=== PATIENT | female | born 1970 | race Caucasian/White ===

== ENCOUNTER 2017-07-24 00:54 | Emergency (ER) | payer BC ==
[2017-07-24] MEDS ORDERED: KETOROLAC TROMETHAMINE INJ/PF 30 MG/1 ML SDV IV ONE (01:19)
--- NOTE | 2017-07-24 01:20 | ER Document Report ---
ED General - General Chief Complaint: Flank Pain Stated Complaint: ABDOMINAL PAIN Time Seen by Provider: 07/24/17 01:10 Notes: Patient is a 38-year-old female presents with complaint of pain rating from back around to the right pelvic region. Says it is a burning type pain around the flank. Says worse when she sits up or moves. No dysuria. No pain or burning with urination. No history of kidney stones. No history of abdominal surgeries. She said she was recently started on a estrogen type injection a few weeks ago. She said that she did have some vaginal bleeding a week ago but currently does not have any vaginal bleeding. No diarrhea. No vomiting. No fevers. Denies any recent trauma or injuries. No other complaints at this time. Pain just started in the last 12-24 hours. TRAVEL OUTSIDE OF THE [place] IN LAST 30 DAYS: No - Related Data Allergies/Adverse Reactions: No Known Allergies Allergy (Unverified 07/24/17 00:57) Past Medical History - Social History Smoking Status: Never Smoker Frequency of alcohol use: Social Drug Abuse: None Family History: Reviewed & Not Pertinent Review of Systems - Review of Systems Notes: My Normal Review Basic REVIEW OF SYSTEMS: CONSTITUTIONAL : Denies fever, chills, or sweats. Denies recent illness. CARDIOVASCULAR: Denies chest pain. RESPIRATORY: Denies cough, cold, or chest congestion. Denies shortness of breath, difficulty breathing, or wheezing. GASTROINTESTINAL: Lower quadrant abdominal pain. Denies nausea, vomiting, or diarrhea. GENITOURINARY: Denies difficulty urinating, painful urination, burning, frequency, or blood in urine. FEMALE GENITOURINARY: Denies vaginal bleeding, abnormal or irregular periods. MUSCULOSKELETAL: Right back and flank pain SKIN: Denies rash or skin lesions. NEUROLOGICAL: Denies altered mental status or loss of consciousness. Denies headache. Denies weakness or paralysis or loss of use of either side. Denies problems with gait or speech. Denies sensory or motor loss. ALL OTHER SYSTEMS REVIEWED AND NEGATIVE. Physical Exam - Vital signs Vitals: Temp Pulse Resp BP Pulse Ox 97.8 F 73 18 133/77 H 100 07/24/17 01:00 07/24/17 01:00 07/24/17 01:00 07/24/17 01:00 07/24/17 01:00 - Notes Notes: General Appearance: Well nourished, alert, cooperative, no acute distress, mild obvious discomfort. Vitals: reviewed, See vital signs table. Eyes: PERRL, EOMI, Conjuctiva clear Mouth: No decreasd moisture Lungs: No wheezing, No rales, No rhonci, No accessory muscle use, good air exchange bilaterally. Heart: Normal rate, Regular rythm, No murmur, no rub Abdomen: Normal BS, soft, No rigidity, no reproducible pain palpation of the abdomen or flank., No guarding, no rebound, no abdominal masses, no organomegaly Back: Mild pain to palpation of the right lower back. No rash or herpetic type lesions on the skin. Extremities: strength 5/5 in all extremities, good pulses in all extremities, no swelling or tenderness in the extremities, no edema. Skin: warm, dry, appropriate color, no rash Neuro: speech clear, oriented x 3, normal affect, responds appropriately to questions. Course - Vital Signs Vital signs: Temp Pulse Resp BP Pulse Ox 97.8 F 73 18 133/77 H 100 07/24/17 01:00 07/24/17 01:00 07/24/17 01:00 07/24/17 01:00 07/24/17 01:00 - Laboratory Result Diagrams: 07/24/17 01:17 07/24/17 01:17 Laboratory results interpreted by me: 07/24/17 07/24/17 01:17 01:24 Total Bilirubin 0.1 L Urine Blood SMALL H Discharge - Discharge Clinical Impression: Flank pain Back pain Qualifiers: Back pain location: low back pain Chronicity: acute Back pain laterality: right Sciatica presence: without sciatica Qualified Code(s): M54.5 - Low back pain Condition: Good Disposition: HOME, SELF-CARE Additional Instructions: I suspect your pain is related to a pinched nerve or could be pain that sometimes occurs before shingles. I have prescribed Acyclovir. Please start this medication if you develop a shingles rash over your back or flank. Do not fill or take the medication if you do not develop a rash. We will start you on prednisone. Please take over the counter Tylenol and Iburpofen. Please follow up with your doctor on Wednesday. At that time you can discuss with your doctor whether or not to start Lyrica and what further workup is needed. Please return to the ER if you have worsneing of your pain, fevers, loss of bowel control, weakness or numbness into your legs, vomiting or feel unwell. Prescriptions: Acyclovir [Acyclovir 400 mg Tablet] 800 mg PO 5XD #70 tablet Prednisone 10 mg PO ASDIR #42 tablet
[2017-07-24 01:28] LABS: ABSOLUTE EOSINOPHILS # (AUTO) 0.3 10^3/uL (0.0-0.6); ABSOLUTE LYMPHOCYTES (AUTO) 3.8 10^3/uL (0.5-4.7); ABSOLUTE MONOCYTES (AUTO) 0.7 10^3/uL (0.1-1.4); ABSOLUTE NEUT (AUTO) 3.9 10^3/uL (1.7-8.2); BASOPHILS % (AUTO) 0.5 % (0-2); EOSINOPHILS % (AUTO) 3.4 % (0-6); HEMATOCRIT 40.3 % (36.0-47.0); HEMOGLOBIN 13.6 g/dL (12.0-15.5); LYMPHOCYTES % (AUTO) 43.7 % (13-45); MEAN CORPUSCULAR HEMOGLOBIN 28.5 pg (27.0-33.4); MEAN CORPUSCULAR HGB CONC 33.7 g/dL (32.0-36.0); MEAN CORPUSCULAR VOLUME 85 fl (80-97); MONOCYTES % (AUTO) 7.8 % (3-13); PLATELET COUNT 250 10^3/uL (150-450); RED BLOOD COUNT 4.77 10^6/uL (3.72-5.28); RED CELL DISTRIBUTION WIDTH 13.1 % (11.5-14.0); SEGMENTED NEUTROPHILS % (AUTO) 44.6 % (42-78); TOTAL CELLS COUNTED % (AUTO) 100 %; WHITE BLOOD COUNT 8.8 10^3/uL (4.0-10.5)
[2017-07-24 01:42] LABS: ALANINE AMINOTRANSFERASE 23 U/L (9-52); ALBUMIN 4.6 g/dL (3.5-5.0); ALKALINE PHOSPHATASE 55 U/L (38-126); ANION GAP 18 (5-19); ASPARTATE AMINO TRANSFERASE 18 U/L (14-36); BILIRUBIN,DIRECT 0.1 mg/dL (0.0-0.4); BILIRUBIN,TOTAL 0.1 mg/dL (0.2-1.3); BLOOD UREA NITROGEN 13 mg/dL (7-20); CALCIUM 10.1 mg/dL (8.4-10.2); CARBON DIOXIDE 26 mmol/L (22-30); CHLORIDE 101 mmol/L (98-107); GLUCOSE 101 mg/dL (75-110); POTASSIUM 3.8 mmol/L (3.6-5.0); SODIUM 144.9 mmol/L (137-145); TOTAL PROTEIN 7.5 g/dL (6.3-8.2)
[2017-07-24 01:51] LABS: APPEARANCE,URINE SLIGHTLY-CLOUDY; BILIRUBIN,URINE NEGATIVE (NEGATIVE); COLOR,URINE YELLOW; GLUCOSE, URINE NEGATIVE (NEGATIVE); KETONES,URINE NEGATIVE (NEGATIVE); LEUKOCYTE ESTERASE,URINE NEGATIVE (NEGATIVE); NITRITE,URINE NEGATIVE (NEGATIVE); PROTEIN,URINE NEGATIVE (NEGATIVE); URINE SPECIFIC GRAVITY 1.002; UROBILINOGEN,URINE NEGATIVE mg/dL (<2.0)
[2017-07-24] MEDS ORDERED: MORPHINE SULFATE 10 MG/ML INJ IV ONE (02:06)
--- NOTE | 2017-07-24 02:49 | RADIOLOGY REPORT (SQ) ---
EXAM DESCRIPTION: U/S NON OB PEL TV W/DOPPLER CLINICAL HISTORY: 46 years Female, right sided pain ratios reportedly postmenopausal. COMPARISON: None. TECHNIQUE: Complete pelvic ultrasound with transvaginal imaging. FINDINGS: Uterus measures 7.5 x 4.7 x 3.6 cm. Endometrial thickness of 0.5 cm. No myometrial abnormalities. The right ovary measures 1.7 x 1.3 x 1.3 cm. The left ovary measures 1.5 x 1.2 x 1.1 cm. Limited color spectral Doppler imaging demonstrates flow within the ovaries bilaterally. No free pelvic fluid. IMPRESSION: No sonographic abnormality identified in the pelvis.
[2017-07-24] MEDS ORDERED: PREDNISONE 20 MG TABLET PO ONE (03:10)
[2017-07-24 03:59] VITALS: BP 118/70
== END 2017-07-24 03:56 | disposition home or self-care (01) ==
LOC: ER 00:54
DX: R10.30 Lower abdominal pain, unspecified (principal); M54.5 Low back pain; M54.9 Dorsalgia, unspecified; R10.2 Pelvic and perineal pain; Z79.890 Hormone replacement therapy
CPT/HCPCS: 99284; 96374; 36415; 85025; 81025; 80053; 81001; 76830; 93976; J1885; J7512